=== PATIENT | male | born 1980 | race Caucasian/White ===

== ENCOUNTER 2021-04-23 13:19 | Emergency (ER) | payer SELFPAY ==
[~2021-04-23] VITALS: Ht 177 cm; Wt 109.0 kg
[2021-04-23] MEDS ORDERED: ASPIRIN 81 MG CHEW (CHILDREN'S ASA) PO ONE (13:45)
--- NOTE | 2021-04-23 13:48 | ED Chest Pain ---
General Chief Complaint: Cardiac/General Problems Stated Complaint: CP/BODY ACHES/CONGESTION/NAUSEA/AKBAR Nursing Triage Note: Pt here with c/o abdominal pain, chest pain, and left mid axillary rib pain. States this has been going on for several months but has been happening more frequently recently. Reports pain 1/10 that worsens with palpation. Source: patient Exam Limitations: no limitations History of Present Illness Date Seen by Provider: Apr 23, 2021 Time Seen by Provider: 13:30 Initial Comments Patient is a 41-year-old male who presents to the emergency room with a chief complaint of left-sided chest pain, some intermittent nausea, generalized weakness, congestion. Patient states that the chest pain has been off and on for several months. Over the last 2 days its been more severe he describes it as "dull and achy". He states right now his pain level is a "2 or 3". He has a history of hypertension. He visited his primary care physician about 2 weeks ago and had a blood pressure medication change. He did mention his chest pain at the time and they recommended he come to the emergency department. He denies fevers or chills. He states that he is partially Covid vaccinated. No sick contacts that he is aware of. 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 Had a "scan" of the area ordered by his PCP in [place], but it was unrevealing. . He has not taken any medication for his chest pain (or LUQ pain). No aspirin prior to arrival. He states that he does have a family history of coronary artery disease in family members in their 50s. He is not on cholesterol medications. He did quit smoking about a year ago. All other review of systems reviewed and negative except as stated. Timing/Duration: 2-3 days Severity/Quality: aching, dull Location: other (left chest) Radiation: arms (left axilla) Activities at Onset: none Prior CP/Workup: no prior chest pain, no prior cardiac workup ASA po INSULATION INSTALLER: No NTG SL INSULATION INSTALLER: No Associated Symptoms: nausea/vomiting (mild nausea), weakness Allergies and Home Medications Allergies Coded Allergies: No Known Drug Allergies (Unverified , 04/23/21) Patient Home Medication List Home Medication List Reviewed: Yes Review of Systems Review of Systems Constitutional: see HPI, malaise EENTM: Nose Congestion Respiratory: SOA With Exertion Cardiovascular: Chest Pain Gastrointestinal: Nausea, Poor Appetite Genitourinary: Frequency Musculoskeletal: muscle pain, muscle cramps Skin: no symptoms reported Psychiatric/Neurological: No Symptoms Reported All Other Systems Reviewed Negative Unless Noted: Yes Physical Exam Vital Signs Vital Signs - First Documented 04/23/21 13:33 Temp 36.4 Pulse 86 Resp 18 B/P (MAP) 150/93 (112) Pulse Ox 98 O2 Delivery Room Air Capillary Refill : Less Than 3 Seconds Height, Weight, BMI Height: '" Weight: lbs. oz. kg; 34.00 BMI Method: General Appearance: No Apparent Distress, WD/WN HEENT: Pharynx Normal, Moist Mucous Membranes Neck: Normal Inspection Respiratory: Lungs Clear, Normal Breath Sounds, No Accessory Muscle Use, No Respiratory Distress Cardiovascular: Regular Rate, Rhythm, Normal Peripheral Pulses Gastrointestinal: Normal Bowel Sounds, Non Tender, Soft Extremity: Normal Capillary Refill, Normal Inspection, Normal Range of Motion, Non Tender, No Calf Tenderness, No Pedal Edema Neurologic/Psychiatric: Alert, Oriented x3, No Motor/Sensory Deficits, Normal Mood/Affect, rn family II-XII Norm as Tested Skin: Normal Color, Warm/Dry Progress/Results/Core Measures Results/Orders Lab Results Laboratory Tests Test 04/23/21 13:46 Range/Units White Blood Count 16.5 H 4.3-11.0 10^3/uL Red Blood Count 5.72 H 4.30-5.52 10^6/uL Hemoglobin 17.0 13.3-17.7 g/dL Hematocrit 50 40-54 % Mean Corpuscular Volume 88 80-99 fL Mean Corpuscular Hemoglobin 30 25-34 pg Mean Corpuscular Hemoglobin Concent 34 32-36 g/dL Red Cell Distribution Width 12.8 10.0-14.5 % Platelet Count 260 130-400 10^3/uL Mean Platelet Volume 10.0 9.0-12.2 fL Immature Granulocyte % (Auto) 0 % Neutrophils (%) (Auto) 33 L 42-75 % Lymphocytes (%) (Auto) 28 12-44 % Monocytes (%) (Auto) 5 0-12 % Eosinophils (%) (Auto) 33 H 0-10 % Basophils (%) (Auto) 1 0-10 % Neutrophils # (Auto) 5.4 1.8-7.8 10^3/uL Lymphocytes # (Auto) 4.7 H 1.0-4.0 10^3/uL Monocytes # (Auto) 0.8 0.0-1.0 10^3/uL Eosinophils # (Auto) 5.5 H 0.0-0.3 10^3/uL Basophils # (Auto) 0.1 0.0-0.1 10^3/uL Immature Granulocyte # (Auto) 0.1 0.0-0.1 10^3/uL Neutrophils % (Manual) 29 % Lymphocytes % (Manual) 31 % Monocytes % (Manual) 3 % Eosinophils % (Manual) 36 % Basophils % (Manual) 1 % Blood Morphology Comment NORMAL Sodium Level 139 135-145 MMOL/L Potassium Level 4.3 3.6-5.0 MMOL/L Chloride Level 102 98-107 MMOL/L Carbon Dioxide Level 26 21-32 MMOL/L Anion Gap 11 5-14 MMOL/L Blood Urea Nitrogen 11 7-18 MG/DL Creatinine 1.22 0.60-1.30 MG/DL Estimat Glomerular Filtration Rate 75 BUN/Creatinine Ratio 9 Glucose Level 94 70-105 MG/DL Calcium Level 9.6 8.5-10.1 MG/DL Corrected Calcium 9.2 8.5-10.1 MG/DL Total Bilirubin 0.7 0.1-1.0 MG/DL Aspartate Amino Transf (AST/SGOT) 26 5-34 U/L Alanine Aminotransferase (ALT/SGPT) 48 0-55 U/L Alkaline Phosphatase 101 40-136 U/L Total Creatine Kinase 166 30-200 U/L Troponin I < 0.028 <0.028 NG/ML Total Protein 8.5 H 6.4-8.2 GM/DL Albumin 4.5 3.2-4.5 GM/DL Influenza Type A (RT-PCR) Not Detected Not Detecte Influenza Type B (RT-PCR) Not Detected Not Detecte SARS-CoV-2 RNA (RT-PCR) Not Detected Not Detecte My Orders Orders - ESTEFANI RUBIN MD Ed Iv/Invasive Line Start (04/23/21 13:40) Cbc With Automated Diff (04/23/21 13:40) Comprehensive Metabolic Panel (04/23/21 13:40) Troponin I Remy (04/23/21 13:40) Creatine Kinase (04/23/21 13:40) Chest 1 View, Ap/Pa Only (04/23/21 13:40) Ekg Tracing (04/23/21 13:40) Covid 19 Inhouse Test (04/23/21 13:40) Influenza A And B By Pcr (04/23/21 13:40) Isolation Central Supply Req (04/23/21 13:40) Aspirin Chewable Tablet (Baby Aspirin Ch (04/23/21 13:45) Manual Differential (04/23/21 13:46) Medications Given in ED Current Medications Medications Dose Ordered Sig/Sher Route Start Time Stop Time Status Last Admin Dose Admin Aspirin 324 mg ONCE ONCE PO 04/23/21 13:45 04/23/21 13:46 DC 04/23/21 14:02 324 MG Vital Signs/I&O 04/23/21 13:33 Temp 36.4 Pulse 86 Resp 18 B/P (MAP) 150/93 (112) Pulse Ox 98 O2 Delivery Room Air Blood Pressure Mean: 112 Progress Progress Note : Time: 15:24 Progress Note Patient seen and evaluated, 41-year-old female with a chief complaint of chest pain also left upper quadrant abdominal pain. Labs reviewed, he has a mild leukocytosis of 15,000 otherwise all of his labs are unremarkable. Chest x-ray is clear. EKG is normal. I have talked to him about trying some NSAIDs, specifically Aleve for his left upper quadrant pain. I have referred him to Dr. Sarah stafford for further evaluation of his chest pain. Counseled him on compliance with smoking cessation and is blood pressure medications. I gave both he and his return precautions. They're comfortable with this plan of care. All questions are sought and answered. Patient is stable for discharge. Initial ECG Impression Date: Apr 23, 2021 Initial ECG Impression Time: 13:51 Initial ECG Rate: 87 Initial ECG Rhythm: Normal Sinus Initial ECG Intervals: Normal Initial ECG Impression: Normal Diagnostic Imaging Diagonstic Imaging: Xray Plain Films/CT/US/NM/MRI: chest Comments [facility], [place] NAME: ITZ GUZMAN [facility] REC#: [id number] PT STATUS: REG ER : 1980 PHYSICIAN: ESTEFANI RUBIN MD ADMIT DATE: 04/23/21/ER Draft Date of Exam:04/23/21 CHEST 1 VIEW, AP/PA ONLY INDICATION: Chest pain. EXAMINATION: Chest from 04/23/2021. FINDINGS: The heart and pulmonary vasculature appear unremarkable. There is linear atelectasis in the right midlung with no infiltrates or effusions. There is no pneumothorax. No effusions. IMPRESSION: 1. Minimal right midlung atelectasis, otherwise negative chest. Dictated on workstation # [id number] Dict: 04/23/21 1432 Trans: 04/23/21 1436 [id number] [id number] Interpreted by: ALY CAPONE MD Electronically signed by: Departure Impression Primary Impression: Chest pain Qualified Codes: R07.9 - Chest pain, unspecified Additional Impression: Abdominal pain Qualified Codes: R10.12 - Left upper quadrant pain Disposition: 01 HOME, SELF-CARE Condition: Stable Departure-Patient Inst. Decision time for Depature: 15:25 Referrals: MARIYA FAIRBANKS MD ,LOCAL PHYSICIAN (PCP) Primary Care Physician Patient Instructions: Chest Pain (DC) Add. Discharge Instructions: You can try [id number] Aleve, 2 pills in the morning and 2 at night with food for the pain in your left side. Continue your blood pressure medications as prescribed. Follow-up with your primary care physician regarding further evaluation and management of your left side pain. Return to the emergency room for any worsening chest pain especially with sweating, nausea, shortness of breath or other emergent concerning complaints. Copy Copies To 1: MARIYA FAIRBANKS MD, KATHRYN M MD Apr 23, 2021 13:48
[2021-04-23 13:57] LABS: BASOPHILS # (AUTO) 0.1 10^3/uL (0.0-0.1); BASOPHILS % (AUTO) 1 % (0-10); EOSINOPHILS # (AUTO) 5.5 10^3/uL (0.0-0.3); EOSINOPHILS % (AUTO) 33 % (0-10); HEMATOCRIT 50 % (40-54); LYMPHOCYTES # (AUTO) 4.7 10^3/uL (1.0-4.0); LYMPHOCYTES % (AUTO) 28 % (12-44); MEAN CORPUSCULAR HEMOGLOBIN 30 pg (25-34); MEAN CORPUSCULAR HGB CONC 34 g/dL (32-36); MEAN CORPUSCULAR VOLUME 88 fL (80-99); MONOCYTES # (AUTO) 0.8 10^3/uL (0.0-1.0); MONOCYTES % (AUTO) 5 % (0-12); NEUTROPHILS # (AUTO) 5.4 10^3/uL (1.8-7.8); NEUTROPHILS % (AUTO) 33 % (42-75); PLATELET COUNT 260 10^3/uL (130-400); WHITE BLOOD COUNT 16.5 10^3/uL (4.3-11.0)
[2021-04-23 14:06] LABS: ALBUMIN 4.5 GM/DL (3.2-4.5); CHLORIDE 102 MMOL/L (98-107); POTASSIUM 4.3 MMOL/L (3.6-5.0); SODIUM 139 MMOL/L (135-145)
[2021-04-23 14:07] LABS: CALCIUM 9.6 MG/DL (8.5-10.1)
[2021-04-23 14:08] LABS: GLUCOSE 94 MG/DL (70-105); TOTAL PROTEIN 8.5 GM/DL (6.4-8.2)
[2021-04-23 14:09] LABS: CARBON DIOXIDE 26 MMOL/L (21-32)
[2021-04-23 14:10] LABS: BILIRUBIN,TOTAL 0.7 MG/DL (0.1-1.0)
[2021-04-23 14:12] LABS: ALKALINE PHOSPHATASE 101 U/L (40-136); CREATININE SERUM 1.22 MG/DL (0.60-1.30); GFR ESTIMATED 75
[2021-04-23 14:13] LABS: BUN/CREATININE RATIO 9
[2021-04-23 14:15] LABS: ALANINE AMINOTRANSFERASE 48 U/L (0-55); CREATINE KINASE 166 U/L (30-200)
[2021-04-23 14:35] LABS: BASOPHILS % (MANUAL) 1 %; EOSINOPHILS % (MANUAL) 36 %; LYMPHOCYTES % (MANUAL) 31 %; MONOCYTES % (MANUAL) 3 %; NEUTROPHILS % (MANUAL) 29 %; RBC MORPH NORMAL
--- NOTE | 2021-04-23 14:36 | Diagnostic Imaging Report ---
INDICATION: Chest pain. EXAMINATION: Chest from 04/23/2021. FINDINGS: The heart and pulmonary vasculature appear unremarkable. There is linear atelectasis in the right midlung with no infiltrates or effusions. There is no pneumothorax. No effusions. IMPRESSION: 1. Minimal right midlung atelectasis, otherwise negative chest. Dictated by: Dictated on workstation # [id number]
[2021-04-23 16:08] VITALS: BP 121/87
== END 2021-04-23 16:02 | disposition home or self-care (01) ==
LOC: ER 13:28
DX: R07.9 Chest pain, unspecified (principal); R10.12 Left upper quadrant pain; Z20.822 Contact with and (suspected) exposure to COVID-19
CPT/HCPCS: 36415; 71045; 80053; 82550; 84484; 85007; 85027; 87636; 93005